=== PATIENT | male | born 1930 | race Caucasian/White ===

== ENCOUNTER 2019-11-19 08:50 | Emergency (ER) | payer OTHER, MEDICARE ==
--- OUTSIDE RECORDS SUMMARY | 2019-11-19 08:52 | XMS REPORT ---
:1930 [facility] Address [address] [place] [address] [address] [place] [address] Care Team Providers Name Role Phone Unavailable Unavailable Unavailable Problems This patient has no known problems. Allergies, Adverse Reactions, Alerts This patient has no known allergies or adverse reactions. Medications This patient has no known medications. Results Test Description Test Time Test Comments Text Results Atomic Results Result Comments RAD, CHEST, 2 2019-09-11 15:39:00 Reason for Exam:->R05 FINAL REPORT PATIENT ID: [id number] Chest, 2 views. Clinical History: R05 Comparison Study: None Findings: The cardiac silhouette is unremarkable. Mild interstitial markings are seen in the lung bases with no focal opacity. The pleural spaces are clear. Degenerative changes are seen. Impression: No active cardiopulmonary disease. Signed: Jian Reddy MDReport Verified Date/Time: 09/11/2019 15:39:26 Reading Location: [address] Radiology Reading Room
[2019-11-19] MEDS ORDERED: NA CHLORIDE 0.9% 500 ML ONE ×2 (09:14→10:59)
[2019-11-19 09:23] LABS: Basophils % 0.6 % (0-1.3); Hematocrit 44.2 % (39.6-49.0); Lymphocytes % 20.3 % (15.3-44.8); MPV 8.1 fL (7.6-11.3); RBC Red Blood Cell Count 5.05 M/uL (4.33-5.43)
[2019-11-19 09:32] LABS: BUN Blood Urea Nitrogen 18 mg/dL (7-18); Bicarbonate 26 mmol/L (21-32); Glucose Level 144 mg/dL (74-106); NT PRO-BNP 181 pg/mL (<450); Potassium 3.5 mmol/L (3.5-5.1); Sodium Level 137 mmol/L (136-145); Troponin (Emerg Dept Use Only) < 0.02 ng/mL (0.0-0.045)
--- NOTE | 2019-11-19 09:38 | RAD REPORT ---
EXAM DESCRIPTION: CT - Head Brain Wo Cont - 11/19/2019 9:27 am CLINICAL HISTORY: near syncope Headache, drowsiness COMPARISON: HEAD BRAIN W O CONTRAST dated 07/27/2012; HEAD BRAIN W O CONTRAST dated 11/11/2007 TECHNIQUE: All CT scans are performed using dose optimization technique as appropriate and may inclu de automated exposure control or mA/KV adjustment according to patient size. FINDINGS: No intracranial hemorrhage, hydrocephalus or extra-axial fluid collection.No areas of brai n edema or evidence of midline shift. The paranasal sinuses and mastoids are clear. The calvarium is intact. IMPRESSION: No acute intracranial abnormality.
[2019-11-19 09:42] LABS: Blood Morphology Comment NOT SEEN (NOT SEEN); Platelet Estimate ADEQ
--- NOTE | 2019-11-19 10:34 | RAD REPORT ---
EXAM DESCRIPTION: RAD - Chest Single View - 11/19/2019 9:25 am CLINICAL HISTORY: COUGH Chest pain. COMPARISON: Chest Pa And Lat (2 Views) dated 07/06/2016; CHEST SINGLE VIEW dated 07/27/2012; CHEST PA AND LAT 2 VIEW dated 01/22/2009; CHEST PA AND LAT 2 VIEW dated 12/14/2008 FINDINGS: Portable technique limits examination quality. The lungs are grossly clear. The heart is mildly enlarged. No displaced fractures.Aortic atherosclero sis. IMPRESSION: No acute intrathoracic process suspected.
[2019-11-19 10:50] LABS: Urine Blood TRACE (NEG); Urine Glucose NEGATIVE (NEG); Urine Protein NEGATIVE (NEG); Urine Specific Gravity 1.015 (1.005-1.030)
--- NOTE | 2019-11-19 11:01 | EDPHYS ---
Physician Documentation [facility] Name: Mor Truong Age: 89 yrs Sex: Male : 1930 Arrival Date: 11/19/2019 Time: 08:53 Bed 4 Private MD: ED Physician Hayes Walker HPI: 11/19 09:38 This 89 yrs old Male presents to ER via EMS with complaints of Near Syncope, rn Dizziness. 09:38 The patient has experienced near-syncope. Onset: The symptoms/episode began/occurred rn just prior to arrival. Duration: This was a single episode. Associated injury: The patient did not suffer any apparent associated injury. Associated signs and symptoms: Pertinent negatives: abdominal pain, blurred vision, chest pain, confusion, diaphoresis, diarrhea, headache, palpitations, seizure, shortness of breath. Current symptoms: Currently, the patient is not experiencing any symptoms. The patient has not experienced similar symptoms in the past. Reports at [facility], got hot and lightheaded, no syncope, family took him outside and felt better, called 911. States for last week has felt like had the flu, cough congestion, no sob/abd pain/chest pain. No focal neurological complaint. . Historical: - Allergies: 08:57 No Known Allergies; tw2 - Home Meds: 09:21 simvastatin 20 mg Oral tab 1 tab once daily [Active]; amlodipine 5 mg tab 1 tab once tw2 daily [Active]; pantoprazole 40 mg oral TbEC 1 tab once daily [Active]; aspirin 81 mg Oral chew 1 tab once daily [Active]; viteyes 2 tablets daily [Active]; diclofenac sodium 50 mg oral TbEC 1 tab 3 times per day [Active]; - PMHx: 08:57 Hypertension; tw2 - PSHx: 08:57 cardiac stents; tw2 09:21 back surgery; tw2 - Immunization history:: Adult Immunizations. - Social history:: Smoking status: . - Ebola Screening: : Patient denies travel to an Ebola-affected area in the 21 days before illness onset. - Family history:: not pertinent. - Hospitalizations: : No recent hospitalization is reported. ROS: 09:38 Constitutional: Negative for fever, chills, and weight loss, Eyes: Negative for injury, rn pain, redness, and discharge, Neck: Negative for injury, pain, and swelling, Cardiovascular: Negative for chest pain, palpitations, and edema, Respiratory: + cough Abdomen/GI: Negative for abdominal pain, nausea, vomiting, diarrhea, and constipation, Back: Negative for injury and pain, : Negative for injury, bleeding, discharge, and swelling, MS/Extremity: Negative for injury and deformity, Skin: Negative for injury, rash, and discoloration, Neuro: Negative for headache, numbness, tingling, and seizure. Exam: 09:38 Constitutional: This is a well developed, well nourished patient who is awake, alert, rn and in no acute distress. Head/Face: Normocephalic, atraumatic. Eyes: Pupils equal round and reactive to light, extra-ocular motions intact. Lids and lashes normal. Conjunctiva and sclera are non-icteric and not injected. Cornea within normal limits. Periorbital areas with no swelling, redness, or edema. ENT: dry MM Cardiovascular: Regular, bradycardic, no murmur Respiratory: No increased work of breathing, no retractions or nasal flaring. Abdomen/GI: soft, non-tender MS/ Extremity: Pulses equal, no cyanosis. Neurovascular intact. Full, normal range of motion. Equal circumference. Neuro: Awake and alert, GCS 15, oriented to person, place, time, and situation. Cranial nerves II-XII grossly intact. Motor strength 5/5 in all extremities. Sensory grossly intact. Cerebellar exam normal. 10:56 ECG was reviewed by the Attending Physician. rn Vital Signs: 08:56 BP 134 / 78; Pulse 56; Resp 15; Temp 97.4(O); Pulse Ox 95% on R/A; Weight 81.65 kg (R); tw2 Height 5 ft. 11 in. (180.34 cm); Pain 0/10; 11:12 BP 132 / 72; Pulse 57; Resp 16; Temp 97.4; Pulse Ox 97% on R/A; sg 08:56 Body Mass Index 25.10 (81.65 kg, 180.34 cm) tw2 MDM: 08:55 Patient medically screened. rn 10:57 Differential Diagnosis: vasovagal episode, dehydration, viral syndrome. Data reviewed: rn vital signs, nurses notes, lab test result(s), EKG, radiologic studies, CT scan, plain films, and as a result, I will discharge patient. Counseling: I had a detailed discussion with the patient and/or guardian regarding: the historical points, exam findings, and any diagnostic results supporting the discharge/admit diagnosis, lab results, radiology results, the need for outpatient follow up, to return to the emergency department if symptoms worsen or persist or if there are any questions or concerns that arise at home. Response to treatment: the patient's symptoms have mildly improved after treatment, and as a result, I will discharge patient. Special discussion: I discussed with the patient/guardian in detail that at this point there is no indication for admission to the hospital. It is understood, however, that if the symptoms persist or worsen the patient needs to return immediately for re-evaluation. Based on the history and exam findings, there is no indication for further emergent testing or inpatient evaluation. I discussed with the patient/guardian the need to see the primary care provider for further evaluation of the symptoms. ED course: Pt improved, no acute findings on ct head/cxr/bloodwork, urine shows 1+ ketones, stable vitals, will dc home with pcp f/u, rest, and fluids. Most likely viral syndrome this week drained him, self-reported decrease PO intake, and no focal findings on exam.. 11/19 09:04 Order name: Basic Metabolic Panel; Complete Time: :38 rn 11/19 09:04 Order name: CBC with Diff; Complete Time: 10: rn 11/19 09:04 Order name: Troponin (emerg Dept Use Only); Complete Time: 09:38 rn 11/19 09:04 Order name: Flu; Complete Time: :38 rn 11/19 09:04 Order name: N-Terminal Pro-brain Natriuretic Peptide; Complete Time: 09:38 rn 11/19 09:42 Order name: Manual Differential; Complete Time: 10:11 EDMS 11/19 09:04 Order name: CT Head Brain wo Cont; Complete Time: 10: rn 11/19 09:04 Order name: EKG; Complete Time: 09:05 rn 11/19 09:04 Order name: Cardiac monitoring; Complete Time: 09:48 rn 11/19 09:04 Order name: EKG - Nurse/Tech; Complete Time: 09:48 rn 11/19 09:04 Order name: XRAY Chest (1 view); Complete Time: 10:52 rn 11/19 10:40 Order name: Urine Dipstick--Ancillary (enter results); Complete Time: 10:52 ms 11/19 09:04 Order name: IV Saline Lock; Complete Time: 09:11 rn 11/19 09:04 Order name: Labs collected and sent; Complete Time: 09:10 rn 11/19 09:04 Order name: NPO; Complete Time: 09:10 rn 11/19 09:04 Order name: O2 Per Protocol; Complete Time: 09:10 rn 11/19 09:04 Order name: O2 Sat Monitoring; Complete Time: 09:10 rn 11/19 09:04 Order name: Urine Dipstick-Ancillary (obtain specimen); Complete Time: 10:42 rn EC:56 Rate is 59 beats/min. Rhythm is regular. QRS [place] is Normal. [place] interval is normal. QRS rn interval is prolonged at 148 msec. QT interval is normal. No Q waves. T waves are Normal. No ST changes noted. Clinical impression: Sinus bradycardia and RBBB. Interpreted by me. Reviewed by me. Administered Medications: 09:33 Drug: NS 0.9% 500 ml Route: IV; Rate: bolus; Site: right antecubital; 11:00 Drug: NS 0.9% 500 ml Route: IV; Rate: bolus; Site: right antecubital; Disposition: 11/19/19 11:00 Discharged to Home. Impression: Dehydration, Near syncope, Viral Syndrome. - Condition is Stable. - Discharge Instructions: Dehydration, Adult, Near-Syncope. - Medication Reconciliation Form, Thank You Letter, Antibiotic Education, Prescription Opioid Use form. - Follow up: Private Physician; When: As needed; Reason: Recheck today's complaints, Re-evaluation by your physician. - Problem is new. - Symptoms have improved. Signatures: Dispatcher [employer] EDMS Ranjan Abraham RN RN sg Hayes Walker MD MD rn Smirch, Shelby, RN RN ss Wise, Tara, RN RN tw2 Corrections: (The following items were deleted from the chart) 11:26 11:00 11/19/2019 11:00 Discharged to Home. Impression: Dehydration; Near syncope; Viral ss Syndrome. Condition is Stable. Forms are Medication Reconciliation Form, Thank You Letter, Antibiotic Education, Prescription Opioid Use. Follow up: Private Physician; When: As needed; Reason: Recheck today's complaints, Re-evaluation by your physician. Problem is new. Symptoms have improved. rn
--- NOTE | 2019-11-19 11:01 | ER ---
Nurse's Notes [facility] Name: Mor Truong Age: 89 yrs Sex: Male : 1930 Arrival Date: 11/19/2019 Time: 08:53 Bed 4 Private MD: Diagnosis: Dehydration;Near syncope;Viral Syndrome Presentation: 11/19 08:54 Presenting complaint: EMS states: pt was at [facility] this morning, just tw2 collapsed, did not hit head, he reports feeling dizzy and nauseous, pt was diaphoretic on scene and now. pt denies chest pain, we gave 4 mg IV Zofran. vs stable. Transition of care: patient was not received from another setting of care. Onset of symptoms was November 19, 2019. Risk Assessment: Do you want to hurt yourself or someone else? Patient reports no desire to harm self or others. Initial Sepsis Screen: Does the patient meet any 2 criteria? No. Patient's initial sepsis screen is negative. Does the patient have a suspected source of infection? No. Patient's initial sepsis screen is negative. Care prior to arrival: Medication(s) given: zofran 4 mg, IV initiated. 18 GA, in the right antecubital area. 08:54 Method Of Arrival: EMS: [facility] tw2 08:54 Acuity: DORIAN 3 tw2 Triage Assessment: 08:56 General: Appears in no apparent distress. well groomed, Behavior is calm, cooperative, tw2 appropriate for age. Pain: Denies pain. GI: Reports nausea. Derm: Skin is diaphoretic. Historical: - Allergies: 08:57 No Known Allergies; tw2 - Home Meds: 09:21 simvastatin 20 mg Oral tab 1 tab once daily [Active]; amlodipine 5 mg tab 1 tab once tw2 daily [Active]; pantoprazole 40 mg oral TbEC 1 tab once daily [Active]; aspirin 81 mg Oral chew 1 tab once daily [Active]; viteyes 2 tablets daily [Active]; diclofenac sodium 50 mg oral TbEC 1 tab 3 times per day [Active]; - PMHx: 08:57 Hypertension; tw2 - PSHx: 08:57 cardiac stents; tw2 09:21 back surgery; tw2 - Immunization history:: Adult Immunizations. - Social history:: Smoking status: . - Ebola Screening: : Patient denies travel to an Ebola-affected area in the 21 days before illness onset. - Family history:: not pertinent. - Hospitalizations: : No recent hospitalization is reported. Screenin:58 Abuse screen: Denies threats or abuse. Nutritional screening: No deficits noted. tw2 Tuberculosis screening: No symptoms or risk factors identified. Fall Risk None identified. Assessment: 09:01 Reassessment: Patient appears in no apparent distress at this time. sg 11:11 Reassessment: Patient appears in no apparent distress at this time. Patient and/or sg family updated on plan of care and expected duration. Pain level reassessed. Patient is alert, oriented x 3, equal unlabored respirations, skin warm/dry/pink. awaiting IV fluid bolus ordered at dispo to infuse prior to dc to home. Vital Signs: 08:56 BP 134 / 78; Pulse 56; Resp 15; Temp 97.4(O); Pulse Ox 95% on R/A; Weight 81.65 kg (R); tw2 Height 5 ft. 11 in. (180.34 cm); Pain 0/10; 11:12 BP 132 / 72; Pulse 57; Resp 16; Temp 97.4; Pulse Ox 97% on R/A; sg 08:56 Body Mass Index 25.10 (81.65 kg, 180.34 cm) tw2 ED Course: 08:53 Patient arrived in ED. tw2 08:55 Hayes Walker MD is Attending Physician. rn 08:55 Adult w/ patient. family centered specialist on. Pulse ox on. NIBP on. tw2 08:56 Triage completed. tw2 08:56 Arm band placed on. tw2 09:00 Initial lab(s) drawn, by me. Maintain EMS IV. Good blood return noted. Site clean \T\ sg dry. IV is patent, with fluids infusing freely, with good blood return. 09:00 EKG done, by ED staff, reviewed by Hayes Walker MD. em1 09:10 Ranjan Abraham, RN is Primary Nurse. sg 09:26 XRAY Chest (1 view) In Process Unspecified. EDMS 09:27 CT completed. Patient tolerated procedure well. Patient moved back from CT. bq 09:28 CT Head Brain wo Cont In Process Unspecified. EDMS 11:20 No provider procedures requiring assistance completed. IV discontinued, intact, sg bleeding controlled, No redness/swelling at site. Pressure dressing applied. Administered Medications: 09:33 Drug: NS 0.9% 500 ml Route: IV; Rate: bolus; Site: right antecubital; sg 11:00 Drug: NS 0.9% 500 ml Route: IV; Rate: bolus; Site: right antecubital; sg Outcome: 11:00 Discharge ordered by MD. rn 11:22 Discharged to home ambulatory, with family. sg 11: Condition: good 11:22 Discharge instructions given to patient, family, Instructed on discharge instructions, follow up and referral plans. safety practices, Demonstrated understanding of instructions, follow-up care. 11:26 Patient left the ED. ss Signatures: Dispatcher [employer] EDRanjan Mueller RN RN Emily Hall Roman, MD MD rn Martinez, Eric em1 Jerrica Steele RN RN ss Sveta Hurtado RN RN tw2
[2019-11-19 11:31] VITALS: TEMP 97.4
[2019-11-19 11:32] VITALS: BP 132/72; O2SAT 97
--- NOTE | 2019-11-20 10:26 | EKG ---
Test Date: 2019-11-19 Test Time: 09:14:39 Manager R D: CHASE MEASUREMENT RESULTS: Intervals: Rate: 59 DE: 178 QRSD: 148 QT: 496 QTc: 491 [place]: P: 61 DE: 178 QRS: 72 T: 7 INTERPRETIVE STATEMENTS: Sinus bradycardia Right bundle branch block Abnormal ECG Compared to ECG 07/27/2012 09:21:07 Right bundle-branch block now present Electronically Signed On 11-20-19 10:26:19 FAMILY CONSUMER SCIENTIST by Timothy Cali
== END 2019-11-19 11:26 | disposition home or self-care (01) ==
LOC: ER 08:50
DX: E86.0 Dehydration (principal); B34.9 Viral infection, unspecified; I10 Essential (primary) hypertension; Z79.82 Long term (current) use of aspirin; Z95.818 Presence of other cardiac implants and grafts
CPT/HCPCS: 93005; 85025; 80048; 36415; 81003; 84484; 83880; 87804 ×2; 70450; 71045; 99285; J7040 ×2